=== PATIENT | male | born 1935 | race Native Hawaiian/Other Pacific Islander ===

== ENCOUNTER 2018-06-03 09:31 | Inpatient (IN) | payer OTHER ==
[~2018-06-03 09:31] MED LIST: ACTOPLUS M15 MG/850 PO; DONE10TA4 PO; EZET10TA13 PO; LANS15CA PO; MAGNESIUM500 M1 PO; MELOXICAM15 MG PO; NIFE60TA5 PO; TEMA30CA18 PO
[2018-06-04 06:00] LABS: POTASSIUM 3.8 mmol/L (3.6-5.2)
== END 2018-06-07 09:37 | disposition still patient (30) ==
LOC: PAVC 09:31
PROVIDERS: ADMIT Internal Medicine
DX: R62.7 Adult failure to thrive (principal); M62.81 Muscle weakness (generalized); F03.91 Unspecified dementia, unspecified severity, with behavioral disturbance; M19.90 Unspecified osteoarthritis, unspecified site; D64.9 Anemia, unspecified; E11.9 Type 2 diabetes mellitus without complications; E78.5 Hyperlipidemia, unspecified; G91.2 (Idiopathic) normal pressure hydrocephalus; K59.00 Constipation, unspecified
CPT/HCPCS: 80053; 80061; 82306; 82607; 83540; 84153; 84443; 87081

== ENCOUNTER 2018-06-04 04:53 | Outpatient (CLI) | payer OTHER | END 2018-06-04 18:58 | disposition home or self-care (01) | LOC: LAB 04:53 | DX: D64.9 Anemia, unspecified (principal); I10 Essential (primary) hypertension; E03.9 Hypothyroidism, unspecified; E11.9 Type 2 diabetes mellitus without complications ==

== ENCOUNTER 2018-06-07 10:00 | Inpatient (IN) | payer OTHER ==
[2018-06-07 10:57] LABS: PLATELET COUNT 338 K/uL (142-355)
== END 2018-07-08 09:38 | disposition still patient (30) ==
LOC: PAVC 10:00
PROVIDERS: ADMIT Internal Medicine
DX: R62.7 Adult failure to thrive (principal); M62.81 Muscle weakness (generalized); F03.91 Unspecified dementia, unspecified severity, with behavioral disturbance; M19.90 Unspecified osteoarthritis, unspecified site; D64.9 Anemia, unspecified; E11.9 Type 2 diabetes mellitus without complications; E78.5 Hyperlipidemia, unspecified; G91.2 (Idiopathic) normal pressure hydrocephalus; K59.00 Constipation, unspecified
CPT/HCPCS: 83036; 85027

== ENCOUNTER 2018-07-08 10:22 | Inpatient (IN) | payer OTHER | END 2018-08-05 13:47 | disposition still patient (30) | LOC: PAVC 10:22 | PROVIDERS: ADMIT Internal Medicine ==

== ENCOUNTER 2018-08-05 14:15 | Inpatient (IN) | payer OTHER | END 2018-09-05 12:31 | disposition still patient (30) | LOC: PAVC 14:15 | PROVIDERS: ADMIT Internal Medicine ==

== ENCOUNTER 2018-08-11 06:03 | Outpatient (CLI) | payer OTHER | END 2018-08-11 19:31 | disposition home or self-care (01) | LOC: LAB 06:03 | DX: E11.65 Type 2 diabetes mellitus with hyperglycemia (principal) | CPT/HCPCS: 83036 ==

== ENCOUNTER 2018-08-16 16:11 | Outpatient (CLI) | payer OTHER | END 2018-08-16 19:44 | disposition home or self-care (01) | LOC: RAD 16:11 | DX: R10.32 Left lower quadrant pain (principal) ==

== ENCOUNTER 2018-08-30 16:39 | Outpatient (CLI) | payer OTHER | END 2018-08-30 21:14 | disposition home or self-care (01) | LOC: LAB 16:39 | DX: N39.0 Urinary tract infection, site not specified (principal) | CPT/HCPCS: 81000 ==

== ENCOUNTER 2018-09-05 12:52 | Inpatient (IN) | payer OTHER | END 2018-10-05 13:43 | disposition still patient (30) | LOC: PAVC 12:52 | PROVIDERS: ADMIT Internal Medicine ==

== ENCOUNTER 2018-09-06 04:30 | Outpatient (CLI) | payer OTHER | END 2018-09-06 21:03 | disposition home or self-care (01) | LOC: LAB 04:30 | DX: R97.20 Elevated prostate specific antigen [PSA] (principal) | CPT/HCPCS: 36415; 84153 ==

== ENCOUNTER 2018-10-05 14:14 | Inpatient (IN) | payer OTHER | END 2018-11-05 09:40 | disposition still patient (30) | LOC: PAVC 14:14 | PROVIDERS: ADMIT Internal Medicine ==

== ENCOUNTER 2018-10-17 07:18 | Outpatient (CLI) | payer OTHER ==
[2018-10-17 08:16] LABS: PLATELET COUNT 312 K/uL (142-355)
[2018-10-17 08:28] LABS: POTASSIUM 3.6 mmol/L (3.6-5.2)
== END 2018-10-17 22:42 | disposition home or self-care (01) ==
LOC: LAB 07:18
PROVIDERS: Internal Medicine
DX: D51.8 Other vitamin B12 deficiency anemias (principal); R79.89 Other specified abnormal findings of blood chemistry; Z13.89 Encounter for screening for other disorder
CPT/HCPCS: 80053; 80061; 82607; 85027

== ENCOUNTER 2018-11-05 10:07 | Inpatient (IN) | payer OTHER | END 2018-12-05 12:19 | disposition still patient (30) | LOC: PAVC 10:07 | PROVIDERS: ADMIT Internal Medicine ==

== ENCOUNTER 2018-11-08 03:00 | Outpatient (CLI) | payer OTHER | END 2018-11-08 19:11 | disposition home or self-care (01) | LOC: LAB 03:00 | DX: R73.09 Other abnormal glucose (principal) | CPT/HCPCS: 36415; 83036 ==

== ENCOUNTER 2018-12-05 12:33 | Inpatient (IN) | payer OTHER | END 2019-01-05 12:32 | disposition still patient (30) | LOC: PAVC 12:33 | PROVIDERS: ADMIT Internal Medicine ==

== ENCOUNTER 2019-01-05 14:17 | Inpatient (IN) | payer OTHER | END 2019-02-05 17:17 | disposition still patient (30) | LOC: PAVC 14:17 | PROVIDERS: ADMIT Internal Medicine ==

== ENCOUNTER 2019-01-13 13:45 | Outpatient (CLI) | payer OTHER | END 2019-01-13 23:49 | disposition home or self-care (01) | LOC: LAB 13:45 | DX: Z12.5 Encounter for screening for malignant neoplasm of prostate (principal); R97.20 Elevated prostate specific antigen [PSA] | CPT/HCPCS: 84153 ==

== ENCOUNTER 2019-02-04 08:15 | Outpatient (CLI) | payer OTHER ==
[2019-02-04 08:43] LABS: PLATELET COUNT 140 K/uL (142-355)
[2019-02-04 08:51] LABS: POTASSIUM 4.3 mmol/L (3.6-5.2)
== END 2019-02-04 23:07 | disposition home or self-care (01) ==
LOC: LAB 08:15 → RAD 08:15 → LAB 23:07
PROVIDERS: Internal Medicine
DX: R41.82 Altered mental status, unspecified (principal)
CPT/HCPCS: 36415; 80053; 81000; 85027

== ENCOUNTER 2019-02-05 07:26 | Outpatient (CLI) | payer OTHER | END 2019-02-05 23:59 | disposition home or self-care (01) | LOC: RAD 07:26 | DX: R41.82 Altered mental status, unspecified (principal); R53.83 Other fatigue ==

== ENCOUNTER 2019-02-05 14:59 | Inpatient (IN) | payer OTHER ==
[~2019-02-05] VITALS: Ht 170.2 cm; Wt 71.8 kg
[2019-02-05 18:15] VITALS: BP 143/63; TEMP 96.3; Ht 170.2 cm; Wt 71.8 kg
[2019-02-05 20:00] VITALS: BP 115/48; TEMP 98.4
[2019-02-05 20:21] LABS: PLATELET COUNT 107 K/uL (142-355)
[2019-02-06] VITALS: BP 122/72; TEMP 98.2
[2019-02-06 03:50] VITALS: BP 150/78; TEMP 98.7
[2019-02-06 08:18] VITALS: BP 143/70; TEMP 97.6
[2019-02-06 12:05] VITALS: BP 136/67; TEMP 99.3
[2019-02-06 16:00] VITALS: BP 140/66; TEMP 98.5
[2019-02-06 20:00] VITALS: BP 132/45; TEMP 98.2
[2019-02-07] VITALS (7 sets, daily range): BP systolic 129–167; BP diastolic 56–85; TEMP 96–97.9
[2019-02-07 14:09] LABS: POTASSIUM 4.6 mmol/L (3.6-5.2)
[2019-02-08 04:00] VITALS: BP 163/76; TEMP 96.8
[2019-02-08 08:00] VITALS: BP 168/72
== END 2019-02-08 13:25 | DRG 682 ==
LOC: MED/SURG 14:59
PROVIDERS: ADMIT Internal Medicine
DX: N17.8 Other acute kidney failure (principal); R40.20 Unspecified coma; E87.0 Hyperosmolality and hypernatremia; G91.2 (Idiopathic) normal pressure hydrocephalus; E86.0 Dehydration; R97.20 Elevated prostate specific antigen [PSA]; R60.9 Edema, unspecified; E11.42 Type 2 diabetes mellitus with diabetic polyneuropathy; Z86.73 Personal history of transient ischemic attack (TIA), and cerebral infarction without residual deficits
CPT/HCPCS: 36415; 80048; 80053; 80061; 80202; 84153; 85027; 87040; J1335; J3370; J3475; J3490

== ENCOUNTER 2019-02-05 17:43 | Inpatient (IN) | payer OTHER | END 2019-02-18 14:00 | disposition E | LOC: PAVC 17:43 | PROVIDERS: ADMIT Internal Medicine | DX: E86.0 Dehydration (principal); R41.82 Altered mental status, unspecified; R13.11 Dysphagia, oral phase; R40.1 Stupor; R62.7 Adult failure to thrive; G91.2 (Idiopathic) normal pressure hydrocephalus; D64.9 Anemia, unspecified; Z85.46 Personal history of malignant neoplasm of prostate ==